=== PATIENT | male | born 2000 | race Caucasian/White ===

== ENCOUNTER → 2021-04-17 | Outpatient (CLI) | payer OTHER ==
--- NOTE | 2021-04-17 13:15 | Diagnostic Imaging Report ---
INDICATION: Pain status post injury COMPARISON: None. FINDINGS: Multiple radiographic views of the right elbow show no fractures, dislocations, or other acute bony abnormalities identified. Joint spaces are well maintained throughout. The soft tissues appear unremarkable. No radiopaque foreign bodies are identified. IMPRESSION: No acute fractures or dislocations of the right elbow. Dictated by: Dictated on workstation # [id number]
--- NOTE | 2021-04-17 13:54 | Diagnostic Imaging Report ---
INDICATION: Right shoulder pain. Hit by baseball. FINDINGS: Three views. There are no fractures or dislocation. The articulating surfaces are smooth. The joint spaces are well maintained. AC joint shows good alignment. There are no fractures. IMPRESSION: Normal right shoulder. Dictated by: Dictated on workstation # [id number]
== END ==
LOC: RAD FS 10:24
DX: M25.511 Pain in right shoulder (principal); M25.521 Pain in right elbow; Z87.828 Personal history of other (healed) physical injury and trauma; W21.03XA Struck by baseball, initial encounter
CPT/HCPCS: 73030; 73080

== ENCOUNTER → 2021-06-28 | Outpatient (CLI) | payer OTHER ==
--- NOTE | 2021-06-28 18:37 | Diagnostic Imaging Report ---
INDICATION: Right hand pain, injury sliding into 2nd base. EXAMINATION: Right hand 06/28/2021. FINDINGS: 3 views of the right hand. There is a small osseous fragment at the base of the 5th metacarpal which could represent an acute avulsion fracture, correlate with site of pain. The remaining osseous structures appear intact. There are no dislocations. IMPRESSION: Possible acute avulsion fracture at the base of the 5th metacarpal, correlate with site of pain. Dictated by: Dictated on workstation # [id number]
== END ==
LOC: RAD FS 10:29
PROVIDERS: ATTEND Nurse Practitioner
DX: S69.91XA Unspecified injury of right wrist, hand and finger(s), initial encounter (principal); X58.XXXA Exposure to other specified factors, initial encounter
CPT/HCPCS: 73130